=== PATIENT | male | born 1990 | race Caucasian/White ===

== ENCOUNTER 2017-01-12 19:23 | Emergency (ER) | payer SELFPAY ==
[~2017-01-12] VITALS: Ht 175.3 cm; Wt 93.0 kg
[2017-01-12] MEDS ORDERED: IBUPROFEN 600MG TABLET PO STA (21:51)
[2017-01-12 23:46] VITALS: BP 109/68
== END 2017-01-13 00:09 | disposition home or self-care (01) ==
LOC: ER 22:32
DX: R07.9 Chest pain, unspecified (principal); J45.909 Unspecified asthma, uncomplicated; F17.200 Nicotine dependence, unspecified, uncomplicated
CPT/HCPCS: 71010; 93005; 99284; Z7610